=== PATIENT | female | born 1990 | race Two or more races ===

== ENCOUNTER 2024-01-10 18:47 | Emergency (ER) | payer OTHER ==
[~2024-01-10] VITALS: Ht 157.5 cm; Wt 90.7 kg
[2024-01-10] MEDS ORDERED: CLONAZEPAM1 MG PO (19:02)
[2024-01-10] MEDS ORDERED: MIRTAZAPINE7.5 MG PO (19:03)
== END 2024-01-10 21:37 | disposition home or self-care (01) ==
LOC: ER 18:47
DX: S31.41XA Laceration without foreign body of vagina and vulva, initial encounter (principal); Z88.0 Allergy status to penicillin; Z88.8 Allergy status to other drugs, medicaments and biological substances